=== PATIENT | female | born 1935 | race African-American/Black ===

== ENCOUNTER 2019-05-30 10:50 | Outpatient (CLI) | payer MEDICARE, OTHER ==
--- NOTE | 2019-05-30 12:18 | BD ---
BONE DENSITOMETRY USING DEXA: Date: 05/30/2019 HISTORY: Postmenopausal screening for osteoporosis. FINDINGS: Lumbar Spine: BMD (g/cm2) L1 0.749 T-Score: -2.2 Z-Score: -0.2 L2 0.717 T-Score: -2.8 Z-Score: -0.6 L3 0.848 T-Score: -2.1 Z-Score: 0.2 L4 0.790 T-Score: -2.5 Z-Score: -0.1 L1-L4 0.780 T-Score: -2.4 Z-Score: -0.2 Femoral Neck: 0.464 T-Score: -0.5 Z-Score: -1.5 Total Femur: 0.534 T-Score: -2.3 Z-Score: -1.4 There has been interval reduction of 0.4% in the bone mineral density of the lumbar spine and reducti on of 5.6% in the bone mineral density of the proximal femur since 03/18/2014. IMPRESSION: Osteoporosis. POS: NIC
== END 2019-05-30 10:51 | disposition home or self-care (01) ==
LOC: BICMAMMO 10:50
PROVIDERS: ATTEND Nurse Practitioner Family
DX: Z13.820 Encounter for screening for osteoporosis (principal); E55.9 Vitamin D deficiency, unspecified; M81.0 Age-related osteoporosis without current pathological fracture; M85.859 Other specified disorders of bone density and structure, unspecified thigh
CPT/HCPCS: 77080